=== PATIENT | male | born 1950 | race Caucasian/White ===

== ENCOUNTER 2017-05-26 17:57 | Emergency (ER) | payer BC, OTHER ==
[2017-05-26 18:12] VITALS: BP 133/74; PULSE 87; TEMP 100; BMI 26.2
--- NOTE | 2017-05-26 19:02 | PDOC ---
History of Present Illness - General Chief Complaint: Cold Symptoms Stated Complaint: COLD SYMPTOMS Time Seen by Provider: 05/26/17 18:46 History Source: Patient Exam Limitations: No Limitations - History of Present Illness Initial Comments: 05/26/17 18:59 CC sudden onset of fever, severe body aches x this afternoon; no NV; no CP/ cough Timing/Duration: reports: constant Severity: reports: moderate Possible Cause: No: no prior episodes Modifying Factors: worse with: albuterol inhaler Associated Symptoms: reports: fever/chills, headache, nasal drainage, sore throat. denies: chest pain/soreness Past History - Past Medical History Allergies/Adverse Reactions: Allergies Allergy/AdvReac Type Severity Reaction Status Date / Time No Known Allergies Allergy Verified 05/26/17 18:13 Home Medications: Ambulatory Orders Atorvastatin Ca [Lipitor -] 80 mg PO HS 07/12/13 Aspirin [ASA -] 325 mg PO DAILY 05/14/14 Metoprolol Tartrate [Lopressor] 50 mg PO DAILY 05/14/14 Oseltamivir Phosphate [Tamiflu] 75 mg PO BID #10 capsule 05/26/17 Cardiac Disorders: Yes COPD: No Hypercholesterolemia: Yes - Surgical History Cardiac Surgery: Yes (bypass) - Immunization History Td Vaccination: Yes (2 YEARS AGO) - Suicide/Smoking/Psychosocial Hx Smoking Status: Yes Smoking History: Former smoker Have you smoked in the past 12 months: No Number of Cigarettes Smoked Daily: 6 Information on smoking cessation initiated: No Hx Alcohol Use: No Drug/Substance Use Hx: No Substance Use Type: None Review of Systems - Review of Systems Constitutional: Yes: Chills, Fever, Malaise HEENTM: Yes: Nose Congestion. No: Eye Pain, Blurred Vision, Nose Pain Respiratory: Yes: Cough Cardiac (ROS): No: Chest Pain, Lightheadedness, Chest Tightness ABD/GI: No: Abdominal Distended, Abd. Pain w/ defecation, Constipated, Diarrhea , Difficulty Swallowing, Nausea, Poor Appetite : No: Symptoms Reported, Burning, Dysuria Musculoskeletal: Yes: Muscle Pain Integumentary: No: Bruising Neurological: No: Symptoms reported *Physical Exam - Vital Signs Last Vital Signs Temp Pulse Resp BP Pulse Ox 100 F H 87 18 133/74 96 05/26/17 18:07 05/26/17 18:07 05/26/17 18:07 05/26/17 18:07 05/26/17 18:07 - Physical Exam General Appearance: Yes: Appropriately Dressed, Apparent Distress HEENT: positive: TMs Normal, Pharyngeal Erythema, Nasal Congestion, Rhinorrhea. negative: TM Bulging, TM Dull Neck: positive: Normal Thyroid, Supple. negative: Tender, Rigid, Lymphadenopathy (R), Lymphadenopathy (L) Respiratory/Chest: positive: Lungs Clear. negative: Accessory Muscle Use, Labored Respiration, Rales, Rhonchi, Wheezing Cardiovascular: positive: Regular Rhythm, Regular Rate. negative: Murmur Gastrointestinal/Abdominal: positive: Normal Bowel Sounds, Soft. negative: Tender *DC/Admit/Observation/Transfer Diagnosis at time of Disposition: Flu-like symptoms - Discharge Dispostion Disposition: HOME Condition at time of disposition: Stable Admit: No - Prescriptions Prescriptions: Oseltamivir Phosphate [Tamiflu] 75 mg PO BID #10 capsule - Referrals Referrals: Ashlee Landon MD [Primary Care Provider] - - Patient Instructions Additional Instructions: please return for increased symptom; your symptoms are consistent with early flu but your rapid flu test is negative today; call local MD in am for reevaluation - Post Discharge Activity
== END 2017-05-26 20:02 | disposition home or self-care (01) ==
LOC: JERFT 17:57
DX: J11.1 Influenza due to unidentified influenza virus with other respiratory manifestations (principal); Z95.1 Presence of aortocoronary bypass graft; E78.00 Pure hypercholesterolemia, unspecified
CPT/HCPCS: 87804; 99281-25

== ENCOUNTER 2020-06-26 02:09 | Inpatient (IN) | payer OTHER ==
[2020-06-26] MEDS ORDERED: PANTOPRAZOLE SODIUM 40 MG VIAL IVPUSH ONE (03:18)
[2020-06-26] MEDS ORDERED: PANTOPRAZOLE SODIUM 40 MG VIAL ONE ×2 (03:27→22:26)
[2020-06-26 03:42] LABS: BASO % 0.6 % (0-2.0); EOS % 0.1 % (0-4.5); HEMATOCRIT 31.5 % (35.4-49); HEMOGLOBIN 10.5 GM/dL (11.7-16.9); LYMPH % 25.4 % (8-40); MCH 30.2 pg (25.7-33.7); MCHC 33.2 g/dl (32.0-35.9); MEAN CELL VOLUME 90.9 fl (80-96); MEAN PLT VOLUME 9.2 fl (7.5-11.1); MONO % 6.6 % (3.8-10.2); NEUT % 67.3 % (42.8-82.8); PLATELET COUNT 266 K/MM3 (134-434); RBC 3.47 M/mm3 (4.00-5.60); RDW 13.1 % (11.9-15.9); WHITE BLOOD COUNT 14.1 K/mm3 (4.0-10.0)
[2020-06-26 03:57] LABS: CHLORIDE 103 mmol/L (98-107); POTASSIUM 4.4 mmol/L (3.5-5.1); SODIUM 136 mmol/L (136-145)
[2020-06-26 04:06] LABS: INR 1.12 (0.83-1.09); PROTHROMBIN TIME (PATIENT) 13.5 SEC (9.7-13.0)
[2020-06-26 04:09] LABS: ACTIVATED PTT 29.3 SECONDS (25.2-36.5)
[2020-06-26 04:43] LABS: ALBUMIN 3.2 g/dl (3.4-5.0); ALK PHOS 50 U/L (45-117); ANION GAP 8 MMOL/L (8-16); BILIRUBIN,TOTAL 0.3 mg/dL (0.2-1); CALCIUM 8.3 mg/dL (8.5-10.1); CO2 25 mmol/L (21-32); CREATININE 0.8 mg/dL (0.55-1.3); GLUCOSE,RANDOM 225 mg/dL (74-106); MAGNESIUM 2.3 mg/dL (1.8-2.4); SGOT/AST 16 U/L (15-37); SGPT/ALT 37 U/L (13-61); TOT PROT 6.7 g/dl (6.4-8.2)
[2020-06-26 08:07] LABS: BASO % 0.4 % (0-2.0); HEMATOCRIT 28.9 % (35.4-49); HEMOGLOBIN 9.8 GM/dL (11.7-16.9); LYMPH % 18.4 % (8-40); MCH 30.6 pg (25.7-33.7); MCHC 33.9 g/dl (32.0-35.9); MEAN CELL VOLUME 90.4 fl (80-96); MEAN PLT VOLUME 9.5 fl (7.5-11.1); NEUT % 77.2 % (42.8-82.8); PLATELET COUNT 241 K/MM3 (134-434); WHITE BLOOD COUNT 11.1 K/mm3 (4.0-10.0)
[2020-06-26] MEDS ORDERED: PANTOPRAZOLE SODIUM 40 MG/100 ML BAG IVPB ONE (09:33)
[2020-06-26] MEDS: SODIUM CHLORIDE 0.45% 1,000 ML IV SCH (10:30)
[2020-06-26] MEDS: PANTOPRAZOLE SODIUM 40 MG VIAL IVPUSH SCH ×2 (11:30→22:33)
[2020-06-26 19:14] LABS: BASO % 0.6 % (0-2.0); EOS % 0.3 % (0-4.5); HEMATOCRIT 24.7 % (35.4-49); HEMOGLOBIN 8.4 GM/dL (11.7-16.9); LYMPH % 30.7 % (8-40); MCH 30.6 pg (25.7-33.7); MEAN CELL VOLUME 90.1 fl (80-96); MEAN PLT VOLUME 8.5 fl (7.5-11.1); MONO % 9.3 % (3.8-10.2); NEUT % 59.1 % (42.8-82.8); PLATELET COUNT 219 K/MM3 (134-434); RBC 2.75 M/mm3 (4.00-5.60)
[2020-06-27 08:47] LABS: BASO % 0.6 % (0-2.0); EOS % 1.1 % (0-4.5); HEMATOCRIT 22.8 % (35.4-49); HEMOGLOBIN 7.7 GM/dL (11.7-16.9); LYMPH % 34.4 % (8-40); MCH 30.7 pg (25.7-33.7); MCHC 33.8 g/dl (32.0-35.9); MEAN CELL VOLUME 90.9 fl (80-96); MEAN PLT VOLUME 8.5 fl (7.5-11.1); MONO % 8.9 % (3.8-10.2); PLATELET COUNT 200 K/MM3 (134-434); RDW 13.1 % (11.9-15.9); WHITE BLOOD COUNT 8.7 K/mm3 (4.0-10.0)
[2020-06-27 08:54] LABS: INR 1.14 (0.83-1.09); PROTHROMBIN TIME (PATIENT) 13.7 SEC (9.7-13.0)
[2020-06-27 08:57] LABS: POTASSIUM 4.2 mmol/L (3.5-5.1)
[2020-06-27 09:07] LABS: ALBUMIN 3.3 g/dl (3.4-5.0)
[2020-06-27 09:08] LABS: MAGNESIUM 2.3 mg/dL (1.8-2.4)
[2020-06-27 09:09] LABS: CALCIUM 8.2 mg/dL (8.5-10.1)
[2020-06-27 09:10] LABS: CREATININE 0.8 mg/dL (0.55-1.3); PHOSPHOROUS 2.2 mg/dL (2.5-4.9)
[2020-06-27 09:12] LABS: BILIRUBIN,TOTAL 0.8 mg/dL (0.2-1); TOT PROT 6.3 g/dl (6.4-8.2)
[2020-06-27 09:14] LABS: BLOOD UREA NITROGEN 19.1 mg/dL (7-18)
[2020-06-27] MEDS ORDERED: PANTOPRAZOLE SODIUM 40 MG VIAL ONE (09:37)
[2020-06-27] MEDS: PANTOPRAZOLE SODIUM 80 MG in SODIUM CHLORIDE 100 ML IVPB SCH ×2 (10:33→20:15)
[2020-06-27] MEDS: SODIUM CHLORIDE 0.45% 1,000 ML IV SCH (10:33)
[2020-06-27] MEDS: metoPROLOL SUCCINATE 25 MG TAB.SR.24H (FP) PO SCH (10:42)
[2020-06-27 22:32] VITALS: BMI 24.0
[2020-06-28] MEDS: SODIUM CHLORIDE 0.45% 1,000 ML IV SCH ×2 (01:30→15:56)
[2020-06-28] MEDS: PANTOPRAZOLE SODIUM 80 MG in SODIUM CHLORIDE 100 ML IVPB SCH ×2 (05:54→15:57)
[2020-06-28 07:41] LABS: BASO % 0.6 % (0-2.0); EOS % 2.8 % (0-4.5); HEMATOCRIT 24.1 % (35.4-49); HEMOGLOBIN 8.4 GM/dL (11.7-16.9); LYMPH % 29.2 % (8-40); MCH 31.1 pg (25.7-33.7); MCHC 34.8 g/dl (32.0-35.9); MEAN CELL VOLUME 89.4 fl (80-96); MEAN PLT VOLUME 8.5 fl (7.5-11.1); MONO % 7.3 % (3.8-10.2); NEUT % 60.1 % (42.8-82.8); PLATELET COUNT 185 K/MM3 (134-434); RDW 14.1 % (11.9-15.9)
[2020-06-28 07:52] LABS: POTASSIUM 3.7 mmol/L (3.5-5.1)
[2020-06-28 07:54] LABS: CALCIUM 8.1 mg/dL (8.5-10.1)
[2020-06-28 07:58] LABS: CREATININE 0.7 mg/dL (0.55-1.3)
[2020-06-28 07:59] LABS: BILIRUBIN,TOTAL 0.9 mg/dL (0.2-1)
[2020-06-28 08:00] LABS: TOT PROT 5.8 g/dl (6.4-8.2)
[2020-06-28] MEDS: metoPROLOL SUCCINATE 25 MG TAB.SR.24H (FP) PO SCH (09:51)
[2020-06-29] MEDS: PANTOPRAZOLE SODIUM 80 MG in SODIUM CHLORIDE 100 ML IVPB SCH (02:15)
[2020-06-29 08:49] LABS: BASO % 0.5 % (0-2.0); EOS % 3.5 % (0-4.5); HEMATOCRIT 24.4 % (35.4-49); HEMOGLOBIN 8.3 GM/dL (11.7-16.9); LYMPH % 26.6 % (8-40); MCH 30.8 pg (25.7-33.7); MCHC 33.9 g/dl (32.0-35.9); MEAN CELL VOLUME 90.8 fl (80-96); MEAN PLT VOLUME 8.7 fl (7.5-11.1); MONO % 8.5 % (3.8-10.2); NEUT % 60.9 % (42.8-82.8); PLATELET COUNT 211 K/MM3 (134-434); RBC 2.69 M/mm3 (4.00-5.60); RDW 14.2 % (11.9-15.9); WHITE BLOOD COUNT 8.2 K/mm3 (4.0-10.0)
[2020-06-29] MEDS ORDERED: PANTOPRAZOLE 40 MG TABLET PO SCH (10:00)
[2020-06-29] MEDS: metoPROLOL SUCCINATE 25 MG TAB.SR.24H (FP) PO SCH (10:35)
[2020-06-29 14:27] VITALS: BP 108/59; PULSE 86; TEMP 98.3
[2020-06-29] MEDS ORDERED: CLARITHROMYCIN 500 MG TABLET (UD) PO SCH (22:00)
[2020-06-29] MEDS ORDERED: AMOXICILLIN 500 MG CAPSULE (FP) PO SCH (22:00)
== END 2020-06-29 15:53 | disposition home or self-care (01) | DRG 379 ==
LOC: JER 02:09 → JERBED 06:13 → J4W 06-27 21:24
PROVIDERS: ADMIT Internal Medicine; ATTEND Student in an Organized Health Care Education/Training Program
PROC: 0DB68ZX Excision of Stomach, Via Natural or Artificial Opening Endoscopic, Diagnostic (ICD-10-PCS; 2020-06-27)
PROC: 0DB78ZX Excision of Stomach, Pylorus, Via Natural or Artificial Opening Endoscopic, Diagnostic (ICD-10-PCS; 2020-06-27)
PROC: 30233N1 Transfusion of Nonautologous Red Blood Cells into Peripheral Vein, Percutaneous Approach (ICD-10-PCS; principal; 2020-06-27 14:15)
DX: K25.4 Chronic or unspecified gastric ulcer with hemorrhage (principal); I25.10 Atherosclerotic heart disease of native coronary artery without angina pectoris; R55 Syncope and collapse; B96.81 Helicobacter pylori [H. pylori] as the cause of diseases classified elsewhere; E78.5 Hyperlipidemia, unspecified; I10 Essential (primary) hypertension; Z95.1 Presence of aortocoronary bypass graft
CPT/HCPCS: 36415; 36430; 71045-TC-FY; 80048; 80053; 80061; 82272; 82550; 82962; 83036; 83721; 83735; 84100; 84443; 84484; 85025; 85610; 85730; 86850; 86900; 86901; 86922; 88305-TC; 93005; 93010; 99285-25; C9803; P9058; U0003

== ENCOUNTER 2020-07-28 04:21 | Day surgery (SDC) | payer OTHER ==
[2020-07-26 15:18] VITALS: BMI 24.9
[2020-07-28 13:19] VITALS: TEMP 97.7
[2020-07-28 13:53] VITALS: PULSE 62
[2020-07-28 13:59] VITALS: BP 118/74
== END 2020-07-28 14:07 | disposition home or self-care (01) ==
LOC: JASU-ENDO 04:21
PROVIDERS: ATTEND Internal Medicine Gastroenterology
PROC: 0DB78ZX Excision of Stomach, Pylorus, Via Natural or Artificial Opening Endoscopic, Diagnostic (ICD-10-PCS; principal; 2020-07-28 12:30)
DX: K25.9 Gastric ulcer, unspecified as acute or chronic, without hemorrhage or perforation (principal)
CPT/HCPCS: 88305-TC; 88342-TC

== ENCOUNTER 2022-08-13 21:03 | Inpatient (IN) | payer OTHER ==
[2022-08-13 22:25] LABS: BASO % 1.5 % (0-2.0); HEMATOCRIT 38.3 % (35.4-49); HEMOGLOBIN 13.2 GM/dL (11.7-16.9); LYMPH % 31.8 % (8-40); MCHC 34.6 g/dl (32.0-35.9); MEAN CELL VOLUME 86.7 fl (80-96); MEAN PLT VOLUME 8.6 fl (7.5-11.1); MONO % 10.1 % (3.8-10.2); NEUT % 52.6 % (42.8-82.8); PLATELET COUNT 258 10^3/uL (134-434); RBC 4.42 M/mm3 (4.00-5.60); RDW 13.3 % (11.9-15.9); WHITE BLOOD COUNT 4.9 K/mm3 (4.0-10.0)
[2022-08-13 22:51] LABS: BLOOD UREA NITROGEN 22.9 mg/dL (7-18); CALCIUM 8.7 mg/dL (8.5-10.1)
[2022-08-13 22:52] LABS: ALBUMIN 3.5 g/dl (3.4-5.0)
[2022-08-13 22:54] LABS: CREATININE 1.1 mg/dL (0.55-1.3)
[2022-08-13 22:56] LABS: BILIRUBIN,TOTAL 0.5 mg/dL (0.2-1); TOT PROT 7.6 g/dl (6.4-8.2)
[2022-08-13] MEDS ORDERED: ASPIRIN 81 MG CHEWABLE TABLETS PO ONE (23:03)
[2022-08-13] MEDS ORDERED: metoPROLOL SUCCINATE 25 MG TAB.SR.24H (FP) PO ONE ×2 (23:07→23:36)
[2022-08-13] MEDS ORDERED: ASPIRIN 81 MG CHEWABLE TABLETS ONE (23:09)
[2022-08-13] MEDS ORDERED: ENOXAPARIN NA (PORCINE) 80 MG/0.8 ML DISP.SYRIN SQ SCH (23:15)
[2022-08-13] MEDS ORDERED: ENOXAPARIN NA (PORCINE) 80 MG/0.8 ML DISP.SYRIN SQ ONE ×2 (23:15→23:36)
[2022-08-13] MEDS ORDERED: TICAGRELOR 60 MG TABLET PO ONE (23:23)
[2022-08-14] MEDS ORDERED: TICAGRELOR 90 MG TABLET PO ONE ×2 (03:32→03:43)
[2022-08-14] MEDS ORDERED: TICAGRELOR 60 MG TABLET PO SCH ×3 (03:42→10:00)
[2022-08-14] MEDS ORDERED: TICAGRELOR 60 MG TABLET PO ONE (03:43)
[2022-08-14] MEDS ORDERED: TICAGRELOR 90 MG TABLET PO SCH ×2 (03:43→20:00)
[2022-08-14] MEDS ORDERED: ASPIRIN 81 MG CHEWABLE TABLETS PO SCH ×2 (04:00→10:00)
[2022-08-14 04:58] VITALS: BMI 25.5
[2022-08-14 08:53] LABS: HEMATOCRIT 38.8 % (35.4-49); HEMOGLOBIN 14.2 GM/dL (11.7-16.9); MCH 31.4 pg (25.7-33.7); MCHC 36.5 g/dl (32.0-35.9); MEAN PLT VOLUME 9.2 fl (7.5-11.1); PLATELET COUNT 269 10^3/uL (134-434); RBC 4.51 M/mm3 (4.00-5.60); RDW 13.3 % (11.9-15.9); WHITE BLOOD COUNT 5.9 K/mm3 (4.0-10.0)
[2022-08-14 09:05] LABS: CALCIUM 9.3 mg/dL (8.5-10.1)
[2022-08-14 09:06] LABS: ALBUMIN 3.7 g/dl (3.4-5.0); BLOOD UREA NITROGEN 18.4 mg/dL (7-18); MAGNESIUM 2.2 mg/dL (1.8-2.4)
[2022-08-14 09:07] LABS: CREATININE 0.9 mg/dL (0.55-1.3)
[2022-08-14 09:09] LABS: BILIRUBIN,TOTAL 1.1 mg/dL (0.2-1)
[2022-08-14 09:14] LABS: N-TERMINAL BNP 39.4 pg/ml (5-125)
[2022-08-14] MEDS ORDERED: PANTOPRAZOLE 40 MG TABLET PO SCH (10:00)
[2022-08-14] MEDS ORDERED: ENOXAPARIN NA (PORCINE) 40 MG/0.4 ML DISP.SYRIN SQ SCH ×2 (10:00)
[2022-08-14] MEDS ORDERED: PATIENT'S OWN MEDICATION (NON-FORMULARY) (Fenofibrate Nanocrystallized [Fenofibrate] 145 M PO SCH (10:00)
[2022-08-14] MEDS ORDERED: ENALAPRIL MALEATE 10 MG TABLET PO SCH (10:00)
[2022-08-14] MEDS: ENOXAPARIN NA (PORCINE) 80 MG/0.8 ML DISP.SYRIN SQ SCH ×2 (10:57→21:13)
[2022-08-14] MEDS: ENALAPRIL MALEATE 10 MG TABLET PO SCH ×2 (10:58→21:13)
[2022-08-14] MEDS: ASPIRIN 81 MG CHEWABLE TABLETS PO SCH (10:58)
[2022-08-14] MEDS: PANTOPRAZOLE 40 MG TABLET PO SCH (10:58)
[2022-08-14] MEDS: FENOFIBRIC ACID 135 MG CAP PO SCH ×2 (11:04→11:15)
[2022-08-14] MEDS ORDERED: INSULIN (NOVOLOG) ASPART 100 UNITS/ML 10ML VIAL ONE ×2 (11:28→21:24)
[2022-08-14] MEDS: INSULIN SLIDING SCALE (NOVOLOG) 1 VIAL SQ SCH ×3 (11:29→21:26)
[2022-08-14] MEDS: OMEGA-3 ACID ETHYL ESTERS (FATTY-ACIDS) 1 GM CAPSULE (FP) PO SCH (21:12)
[2022-08-14] MEDS: ATORVASTATIN CA 80 MG TABLET (FP) PO SCH (21:13)
[2022-08-14] MEDS: TICAGRELOR 90 MG TABLET PO SCH (21:20)
[2022-08-14] MEDS ORDERED: ATORVASTATIN CA 80 MG TABLET (FP) PO SCH (22:00)
[2022-08-15] MEDS: INSULIN SLIDING SCALE (NOVOLOG) 1 VIAL SQ SCH ×4 (06:47→22:57)
[2022-08-15 08:32] LABS: ALBUMIN 3.7 g/dl (3.4-5.0); BLOOD UREA NITROGEN 15.8 mg/dL (7-18); CALCIUM 9.1 mg/dL (8.5-10.1); MAGNESIUM 2.3 mg/dL (1.8-2.4)
[2022-08-15 08:35] LABS: CREATININE 0.9 mg/dL (0.55-1.3); PHOSPHOROUS 3.6 mg/dL (2.5-4.9)
[2022-08-15 08:36] LABS: BILIRUBIN,TOTAL 0.6 mg/dL (0.2-1); TOT PROT 7.9 g/dl (6.4-8.2)
[2022-08-15] MEDS: ENALAPRIL MALEATE 10 MG TABLET PO SCH ×2 (09:25→22:50)
[2022-08-15] MEDS: PANTOPRAZOLE 40 MG TABLET PO SCH (09:25)
[2022-08-15] MEDS: TICAGRELOR 90 MG TABLET PO SCH ×2 (09:26→22:52)
[2022-08-15] MEDS: OMEGA-3 ACID ETHYL ESTERS (FATTY-ACIDS) 1 GM CAPSULE (FP) PO SCH ×2 (09:26→22:50)
[2022-08-15] MEDS: ASPIRIN 81 MG CHEWABLE TABLETS PO SCH (09:26)
[2022-08-15] MEDS: FENOFIBRIC ACID 135 MG CAP PO SCH (09:27)
[2022-08-15 10:22] VITALS: RESP 18
[2022-08-15] MEDS ORDERED: INSULIN (NOVOLOG) ASPART 100 UNITS/ML 10ML VIAL ONE ×2 (12:21→16:47)
[2022-08-15] MEDS: ATORVASTATIN CA 80 MG TABLET (FP) PO SCH (22:50)
[2022-08-16] MEDS: INSULIN SLIDING SCALE (NOVOLOG) 1 VIAL SQ SCH ×2 (06:04→11:38)
[2022-08-16 08:31] VITALS: BP 125/87; PULSE 84; TEMP 97.9
[2022-08-16] MEDS: OMEGA-3 ACID ETHYL ESTERS (FATTY-ACIDS) 1 GM CAPSULE (FP) PO SCH (09:30)
[2022-08-16] MEDS: PANTOPRAZOLE 40 MG TABLET PO SCH (09:30)
[2022-08-16] MEDS: ENALAPRIL MALEATE 10 MG TABLET PO SCH (09:30)
[2022-08-16] MEDS: TICAGRELOR 90 MG TABLET PO SCH (09:30)
[2022-08-16] MEDS: ASPIRIN 81 MG CHEWABLE TABLETS PO SCH (09:30)
[2022-08-16] MEDS: FENOFIBRIC ACID 135 MG CAP PO SCH (09:31)
== END 2022-08-16 14:01 | disposition home or self-care (01) | DRG 281 ==
LOC: JER 21:03 → UNDOADMOB 23:32 → INTOOBSV 23:32 → JERBED 23:32 → J4W 08-14 03:59 → OBSVTOIN 08-15 09:25 → J4W 08-15 20:41
PROVIDERS: ADMIT Internal Medicine; ATTEND Internal Medicine
DX: I21.4 Non-ST elevation (NSTEMI) myocardial infarction (principal); I50.32 Chronic diastolic (congestive) heart failure; I24.9 Acute ischemic heart disease, unspecified; K21.9 Gastro-esophageal reflux disease without esophagitis; E78.5 Hyperlipidemia, unspecified; I11.0 Hypertensive heart disease with heart failure; E11.65 Type 2 diabetes mellitus with hyperglycemia; I25.10 Atherosclerotic heart disease of native coronary artery without angina pectoris; Z95.1 Presence of aortocoronary bypass graft; E78.1 Pure hyperglyceridemia
CPT/HCPCS: 0241U-QW; 36415; 71045-TC-FY; 80048; 80053; 80061; 82272; 82962; 83036; 83690; 83735; 83880; 84100; 84443; 84484; 85025; 85027; 93005; 93010; 93306-TC; 99285-25; G0378